=== PATIENT | female | born 1945 | race Caucasian/White ===

== ENCOUNTER 2018-01-23 14:49 | Emergency (ER) | payer MEDICARE, OTHER ==
[~2018-01-23] VITALS: Ht 167.6 cm; Wt 87.2 kg
[2018-01-23] MEDS ORDERED: JARDIANCE10 MG PO (15:25)
[2018-01-23] MEDS ORDERED: JANUMET XR1 TA1 PO (15:26)
[2018-01-23] MEDS ORDERED: TRIGLIDE160 MG PO (15:27)
[2018-01-23] MEDS ORDERED: SYNTHROID50 MCG PO (15:27)
[2018-01-23] MEDS ORDERED: NIASPAN500 MG PO (15:27)
[2018-01-23] MEDS ORDERED: OMEGA 31000 MG PO (15:28)
[2018-01-23] MEDS ORDERED: ASPIRIN 8181 MG PO (15:28)
[2018-01-23] MEDS ORDERED: TOPROL XL PO (15:29)
[2018-01-23] MEDS ORDERED: SIMVASTATIN40 MG PO (15:29)
[2018-01-23] MEDS ORDERED: MICARDIS H80 MG/25 M PO (15:30)
[2018-01-23 15:45] VITALS: BP 147/68
== END 2018-01-23 15:45 | disposition home or self-care (01) ==
LOC: ED 14:49
DX: S90.411A Abrasion, right great toe, initial encounter (principal); W22.09XA Striking against other stationary object, initial encounter; Y93.01 Activity, walking, marching and hiking; Y92.488 Other paved roadways as the place of occurrence of the external cause

== ENCOUNTER 2019-12-09 11:31 | Emergency (ER) | payer MEDICARE, OTHER ==
[~2019-12-09] VITALS: Ht 167.6 cm; Wt 86.3 kg
[~2019-12-09 11:31] MED LIST: ASPIRIN 8181 MG PO; JANUMET XR1 TA1 PO; JARDIANCE10 MG PO; MICARDIS H80 MG/25 M PO; NIASPAN500 MG PO; OMEGA 31000 MG PO; SIMVASTATIN40 MG PO; SYNTHROID50 MCG PO; TOPROL XL PO; TRIGLIDE160 MG PO
[2019-12-09] MEDS ORDERED: ULTRAM50 MG PO (13:00)
[2019-12-09 13:31] VITALS: BP 178/87
== END 2019-12-09 13:28 | disposition home or self-care (01) ==
LOC: ED 11:31
DX: S40.011A Contusion of right shoulder, initial encounter (principal); I10 Essential (primary) hypertension; E11.9 Type 2 diabetes mellitus without complications; F17.200 Nicotine dependence, unspecified, uncomplicated; W19.XXXA Unspecified fall, initial encounter; Y92.009 Unspecified place in unspecified non-institutional (private) residence as the place of occurrence of the external cause